=== PATIENT | female | born 1950 | race Caucasian/White ===

== ENCOUNTER 2020-04-30 09:13 | Outpatient (REF) | payer MEDICARE, SELFPAY ==
--- NOTE | 2020-04-30 09:18 | MM_ITS ---
EXAMINATION: MM SCREENING DIGITAL BREAST TOMOSYNTHESIS, BILATERAL CLINICAL INFORMATION: Screening. Asymptomatic. The lifetime risk of breast cancer based on the Tyrer-Cuzick Model is 4%. COMPARISON: Mammography: 02/16/2019, 02/13/2018, 08/09/2017, 11/06/2016 TECHNIQUE: Digital breast tomosynthesis is performed in both the craniocaudal and mediolateral oblique views along with computer-aided detection (CAD). Synthesized 2D images are generated from the tomosynthesis. FINDINGS: There are scattered areas of fibroglandular density (ACR BI-RADS breast composition Category b). Parenchymal pattern is similar to prior studies. Nodular asymmetry central outer left breast and mid outer right breast on the CC views are stable to decreased. There is no developing density or interval mass or architectural abnormality. No abnormal calcifications. The axilla and skin contours are unremarkable. MM/MM tomosynthesis screening BI IMPRESSION: No significant changes from prior exams. ASSESSMENT: BI-RADS 2: Benign RECOMMENDATION: Routine annual mammography screening. This patient's information was entered into a reminder system with a target due date for their next mammogram.
== END 2020-04-30 09:14 | disposition home or self-care (01) ==
LOC: HO.MAMMO 09:13
PROVIDERS: PCP Internal Medicine; Visit Provider Internal Medicine
DX: Z12.31 Encounter for screening mammogram for malignant neoplasm of breast (principal)
CPT/HCPCS: 77063; 77067

== ENCOUNTER 2021-05-12 09:33 | Outpatient (REF) | payer BC, SELFPAY ==
--- NOTE | ~2021-05-12 | MM_ITS ---
EXAMINATION: MM SCREENING DIGITAL BREAST TOMOSYNTHESIS, BILATERAL CLINICAL INFORMATION: Screening. Asymptomatic. The lifetime risk of breast cancer based on the Tyrer-Cuzick Model is 4.0%. COMPARISON: Mammography: 04/30/2020 and studies dating back to 09/14/2011 TECHNIQUE: Digital breast tomosynthesis is performed in both the craniocaudal and mediolateral oblique views along with computer-aided detection (CAD). Synthesized 2-D images are generated from the tomosynthesis. FINDINGS: There are scattered areas of fibroglandular density (ACR BI-RADS breast composition Category b). There is a stable parenchymal pattern within the left breast. There are some circumscribed densities seen bilaterally. Within the central slightly medial and inferior aspect of the right breast, there is a 5 x 4 x 5 mm circumscribed density which appears to have some calcifications within it for which spot magnification views are recommended. MM/MM tomosynthesis screening BI IMPRESSION: Right breast density with calcifications for further evaluation, as described. ASSESSMENT: BI-RADS 0: Incomplete - Need Additional Imaging Evaluation. RECOMMENDATION: 1. Additional views of the right breast. 2. Targeted ultrasound if warranted after review of the additional views. 3. Radiology department staff will contact the patient for additional imaging. This patient's information was entered into a reminder system with a target due date for their next mammogram.
--- NOTE | ~2021-05-12 | MM_ITS ---
EXAMINATION: BONE DENSITOMETRY CLINICAL INDICATION: Osteoporosis. COMPARISON: This is the patient's baseline examination. TECHNIQUE: Using a [employer] DXA System (software version: 13.1) manufactured by [employer], dual-energy x-ray absorptiometry was performed of the lumbar spine and left hip. The images are of good technical quality. Summary results are attached. FINDINGS: AP SPINE L1-L4: BMD 0.888 g/cm2, Z-score -0.7, T-score -2.4, osteopenia. LEFT FEMUR, NECK: BMD 0.773 g/cm2, Z-score -0.2, T-score -1.9, osteopenia. LEFT FEMUR, TOTAL: BMD 0.777 g/cm2, Z-score -0.4, T-score -1.8, osteopenia. IDENTIFIED RISK FACTORS: Rheumatoid arthritis, menopause. HISTORY OF FRACTURE: None listed. MEDICATIONS: Multivitamin. MM/XR DEXA axial skeleton IMPRESSION: 1. DIAGNOSIS: Osteopenia based on the lowest T-score value of -2.4 in the lumbar spine applying World Health Organization criteria. 2. 10-YEAR FRACTURE RISK PREDICTION, FRAX: Major osteoporotic fracture (clinical spine, forearm, hip or shoulder) 8.3%. Hip fracture 1.6%. 3. Treatment Recommendations: NOF guidelines recommend consideration for treatment in postmenopausal women and men age 50 and older presenting with the following: -A hip or vertebral (clinical or morphometric) fracture. -T-score less than or equal to -2.5 at the femoral neck or spine after appropriate evaluation to exclude secondary causes. -Low bone mass at the hip or spine and a 10-year fracture probability by FRAX of greater than or equal to 3% for hip fracture or greater than or equal to 20% for major osteoporotic fracture based on the [place] adapted WHO algorithm. 4. Other Recommendations: All treatment decisions require clinical judgment and consideration of individual patient factors, including patient preferences, comorbidities, previous drug use, risk factors not captured in the FRAX model (e.g. frailty, falls, vitamin D deficiency, increased bone turnover, interval significant decline in bone density) and possible under or overestimation of fracture risk by FRAX. Additional medical evaluation for secondary cause of low bone mineral density may be appropriate. FUTURE SCAN RECOMMENDATION: People with diagnosed cases of osteoporosis or at high risk for fracture should have regular bone mineral density tests. For patients eligible for Medicare, routine testing is allowed once every 2 years. The testing frequency can be increased to one year for patients who have rapidly progressing disease, those who are receiving or discontinuing medical therapy to restore bone mass, or have additional risk factors.
== END 2021-05-12 09:34 | disposition home or self-care (01) ==
LOC: HO.MAMMO 09:33
PROVIDERS: PCP Family Medicine; Visit Provider Family Medicine
DX: Z12.31 Encounter for screening mammogram for malignant neoplasm of breast (principal); Z13.820 Encounter for screening for osteoporosis; Z78.0 Asymptomatic menopausal state; M05.9 Rheumatoid arthritis with rheumatoid factor, unspecified; Z79.899 Other long term (current) drug therapy
CPT/HCPCS: 77063; 77067; 77080

== ENCOUNTER 2021-05-20 09:47 | Outpatient (REF) | payer BC, SELFPAY ==
--- NOTE | ~2021-05-20 | MM_ITS ---
EXAMINATION: MM DIAGNOSTIC DIGITAL MAMMOGRAPHY, RIGHT CLINICAL INFORMATION: Recall from screening for question of nodularity with calcification central right breast. COMPARISON: Mammography: 05/12/2021, 04/30/2020, 02/16/2019, 02/13/2018 TECHNIQUE: Digital mammography is performed in the following views: Magnification CC x2, magnification LM x2. FINDINGS: There are scattered areas of fibroglandular density (ACR BI-RADS breast composition Category b). The additional views show fibronodular parenchymal pattern similar to prior studies. No interval developing density or dominant nodularity or mass. There are a few fine calcifications central breast mid depth. No pleomorphic types or ductal distribution. Results are discussed with the patient at time of visit. MM/MM added views RT IMPRESSION: 1. Probable benign calcifications central breast mid depth. 2. Fibronodular parenchymal pattern similar to prior exams. No interval developing density or dominant nodularity. ASSESSMENT: BI-RADS 3: Probably Benign RECOMMENDATION: Diagnostic right mammography in 6 months. This patient's information was entered into a reminder system with a target due date for their next mammogram.
== END 2021-05-20 09:48 | disposition home or self-care (01) ==
LOC: HO.MAMMO 09:47
PROVIDERS: Visit Provider Family Medicine
DX: R92.8 Other abnormal and inconclusive findings on diagnostic imaging of breast (principal)
CPT/HCPCS: 77061; 77065

== ENCOUNTER 2021-11-25 12:10 | Outpatient (REF) | payer MEDICARE, SELFPAY ==
--- NOTE | ~2021-11-25 | MM_ITS ---
EXAMINATION: MM DIAGNOSTIC DIGITAL BREAST TOMOSYNTHESIS, RIGHT US DIAGNOSTIC ULTRASOUND BREAST (AXILLA), RIGHT CLINICAL INFORMATION: Short interval six-month follow-up probable benign tightly grouped calcifications central 8:00 right breast. TC score 4%. COMPARISON: Mammography: 05/20/2021, 05/12/2021 (BI-RADS 0), 04/30/2020, 02/16/2019, 11/05/2016 TECHNIQUE: Digital breast tomosynthesis is performed in both the craniocaudal and mediolateral oblique views along with computer-aided detection (CAD). Synthesized 2D images are generated from the tomosynthesis. Additional magnification right CC and magnification right ML views are obtained. Ultrasound right axilla is performed using grayscale imaging and color Doppler. Comparison imaging also performed left axilla. FINDINGS: There are scattered areas of fibroglandular density (ACR BI-RADS breast composition Category b). Parenchymal pattern is similar to prior studies. There is no developing density or architectural abnormality. The tightly grouped calcifications for follow-up central 8:00 position on magnification views appears stable. There are no increasing calcifications or pleomorphic types. There is prominent node high right axilla extending beyond the [id number]. This prompted ultrasound for additional evaluation. Ultrasound right axilla demonstrates several nodes with smooth contours and thickening of the cortex measuring up to 7 mm. Largest node is 2.2 cm in length. The nodes demonstrate normal central fatty hilus with normal hilar color flow pattern. One of the nodes have some subtle decreased echogenicity in the cortex. Comparison imaging left axilla also shows a large node measuring 3.6 cm in length with cortical thickening measuring up to 8.8 mm. There is fatty central hilus with normal hilar color flow pattern. Results are discussed with the patient at time of visit. Patient notes chronic history rheumatoid arthritis with increasing severity and recent year. The bilateral lymphadenopathy is believed to be reactive change related to her inflammatory arthropathy. The right breast calcifications are stable from prior diagnostic exam and will be reassessed again at time of annual bilateral mammography, due in 6 months. MM/MM tomosynthesis diagnostic RT IMPRESSION: -Benign-appearing tightly grouped right breast calcifications are stable from prior diagnostic exam. -Right breast parenchymal pattern similar to prior studies. No suspicious change. -Bilateral axillary adenopathy consistent with patient's rheumatoid condition. ASSESSMENT: BI-RADS 3: Probably Benign RECOMMENDATION: Magnification views right breast at time of annual bilateral mammography, due in 6 months. This patient's information was entered into a reminder system with a target due date for their next mammogram.
== END 2021-11-25 12:11 | disposition home or self-care (01) ==
LOC: HO.MAMMO 12:10
PROVIDERS: PCP Family Medicine; Visit Provider Family Medicine
DX: R92.8 Other abnormal and inconclusive findings on diagnostic imaging of breast (principal)
CPT/HCPCS: 76642; 77061; 77065

== ENCOUNTER 2022-05-18 09:43 | Outpatient (REF) | payer OTHER, SELFPAY ==
--- NOTE | ~2022-05-18 | MM_ITS ---
EXAMINATION: MM DIAGNOSTIC DIGITAL BREAST TOMOSYNTHESIS, RIGHT CLINICAL INFORMATION: Due for yearly. Also follow-up probable benign tightly grouped calcifications central 8:00 right breast. Rheumatoid arthritis. TC score 4%. COMPARISON: Mammography: 11/25/2021, 05/20/2021, 05/12/2021 (BI-RADS 0), 04/30/2020, 02/16/2019; ultrasound right breast 11/25/2021 TECHNIQUE: Digital breast tomosynthesis is performed in both the craniocaudal and mediolateral oblique views along with computer-aided detection (CAD). Synthesized 2D images are generated from the tomosynthesis. Additional magnification right CC and magnification right ML views are obtained. FINDINGS: There are scattered areas of fibroglandular density (ACR BI-RADS breast composition Category b). Parenchymal pattern is similar to prior studies. There is no developing density or interval mass or architectural abnormality. Small nodular asymmetry central outer left breast on CC view is similar to previous exams. There are some fine calcifications central 8:00 right breast stable compared with prior diagnostic exams. No increasing calcifications or pleomorphic types. Prominent bilateral axillary nodes again noted consistent with the rheumatoid arthritis. The skin contours are smooth. Results are provided to the patient at time of visit by the technologist. MM/MM tomosynthesis diagnostic BI IMPRESSION: -No mammographic evidence of malignancy. -Benign-appearing right breast calcifications similar to prior diagnostic exams. ASSESSMENT: BI-RADS 3: Probably Benign RECOMMENDATION: Diagnostic mammography at time of next annual exam, due in 12 months. This patient's information was entered into a reminder system with a target due date for their next mammogram.
== END 2022-05-18 09:44 | disposition home or self-care (01) ==
LOC: HO.MAMMO 09:43
PROVIDERS: Visit Provider Internal Medicine
DX: R92.8 Other abnormal and inconclusive findings on diagnostic imaging of breast (principal)
CPT/HCPCS: 77062; 77066

== ENCOUNTER 2023-06-15 11:16 | Outpatient (REF) | payer OTHER, SELFPAY ==
--- NOTE | ~2023-06-15 | MM_ITS ---
EXAMINATION: MM DIAGNOSTIC DIGITAL BREAST TOMOSYNTHESIS, BILATERAL CLINICAL INFORMATION: Six-month follow-up right breast calcifications 8:00 axis (final follow-up for two-year stability). Patient also due for bilateral screening. COMPARISON: Mammography: 05/18/2022, 11/25/2021, 05/20/2021, 05/12/2021 (BI-RADS 0), 04/30/2020, 02/16/2019; ultrasound right breast 11/25/2021 TECHNIQUE: Digital breast tomosynthesis is performed in both the craniocaudal and mediolateral oblique views along with computer-aided detection (CAD). Synthesized 2D images are generated from the tomosynthesis. In addition, 2-D spot magnification views of right breast were obtained in the CC and ML projections. FINDINGS: There are scattered areas of fibroglandular density (ACR BI-RADS breast composition Category b). Extremely fine and subtle calcifications in the 8:00 axis right breast associated with a vague parenchymal asymmetry are entirely unchanged when compared with 05/12/2021, and hence stable over a two-year period establishing benignity. No further follow-up recommended. There is a small linear group of benign calcifications within the right breast at the same depth, just lateral to the nipple line. These are unchanged over many years. Small nodular asymmetry central outer left breast on CC view is similar to previous exams, benign. Otherwise there are no suspicious masses, new suspicious grouped calcifications, or areas of architectural distortion in either breast. The parenchymal pattern is stable from prior exams. Prominent lymph nodes in the axillary regions are again noted, possibly related to underlying known rheumatoid arthritis. MM/MM tomosynthesis diagnostic BI IMPRESSION: There are no findings in either breast suspicious for malignancy. Right breast calcifications at the 8:00 axis are stable over 2 years, establishing benignity. No further follow-up required. Recommend the patient return to routine annual screening. ASSESSMENT: BI-RADS BI-RADS 2 - Benign Findings RECOMMENDATION: 1 year F/U Results were provided to the patient at time of visit by the technologist. This patient's information was entered into a reminder system with a target due date for their next mammogram.
== END 2023-06-15 11:17 | disposition home or self-care (01) ==
LOC: HO.MAMMO 11:16
PROVIDERS: PCP Family Medicine; Visit Provider Family Medicine
DX: R92.8 Other abnormal and inconclusive findings on diagnostic imaging of breast (principal)
CPT/HCPCS: 77062; 77066

== ENCOUNTER → 2023-06-15 11:30 | Outpatient (BNV) | payer OTHER, SELFPAY | PROVIDERS: PCP Family Medicine; Visit Provider Radiology Diagnostic Radiology | DX: R92.1 Mammographic calcification found on diagnostic imaging of breast (principal) | CPT/HCPCS: 77062; 77066; G0279 ==

== ENCOUNTER 2024-07-03 10:56 | Outpatient (REF) | payer OTHER, SELFPAY ==
--- OUTSIDE RECORDS SUMMARY | 2024-07-03 12:06 | XMS_ITS | Encounter Summary ---
Author Organization [facility] Address [address] [place] [address] Care Team Providers Care Client Program Manager Name Role Phone Neftali Hadley MD Primary Care Provider [phone] Encounter Details Date Type Department Care Team (Late st Contact Info) Description 06/15/2024 11:00 AM EST Office Visit Rheumatology - [place] [address] [place] [phone] Nikole Beth MD [address] [place] [address] Rheumatoid arthritis involving multiple sites with positive rheumatoid factor (CMS/HCC) (Primary Dx); On prednisone therapy; Generalized joint pain; Age related osteoporosis, unspecified pathological fracture presence Social History Tobacco Use Types Packs/Day Years Used Date Smoking Tobacco: Former Cigarettes Q uit: 06/06/1974 Smokeless Tobacco: Never Alcohol Use Standard Drinks/Week Comments Never 0 (1 standard drink = 0.6 oz pur e alcohol) Sex and Gender Information Value Date Recorded Sex Assigned at Not on file Gender Identity Not on file Sexual Orientation Not on file Job Start Date Occupation Industry Not on file Not on file Not on file documented as of this encounter Last Filed Vital Signs Vital Sign Reading Time Taken Comments Blood Pressure 130/70 06/15/2024 10:59 AM EST Pulse 63 06/15/2024 10:59 AM EST Temperature - - Respiratory Rate - - Oxygen Saturation 98% 06/15/2024 10:59 AM EST Inhaled Oxygen Concentration - - Weight 67.6 kg (149 lb) 06/15/2024 10:59 AM EST Height 162.6 cm (5' 4 ) 06/15/2024 10:59 AM EST Body Mass Index 25.58 06/15/2024 10:59 AM EST documented in this encounter Ordered Prescriptions Prescription Sig Dispensed Refills Start Date End Da te ibuprofen (ADVIL,MOTRIN) 600 mg tablet Take 1 tablet (600 mg total) by mouth 3 (three) times a day if needed for mild pain. 60 tablet 06/15/2024 08/14/2024 upadacitinib 15 mg tablet extended release 24 hrIndications:Rheumatoid arthritis involving multiple sites with positive rheumatoid factor (CMS/HCC) Take 15 mg by mouth 1 (one) time each day. 90 tablet 2 06/15/2024 06/26/2024 documented in this encounter Progress Notes * Nikole Beth MD - 06/15/2024 11:00 AM EST Images from the original note were not included. F/u visit . She is here today for f/u. She takes prednisone 5 mg off and on when she gets joint pain. She c/o pain in her left toes, right ankle. She states she is ready to start taking rinvoq as her joint pain is not better. She got shingles vaccination. She is on lipitor 20 mg daily. She was not vaccinated for Hep B as it wa snot covered by insurance. F/u visit 04/20/24 She is here today for f/u. She c/o generalized joint pain, mostly ankle pain, hand joint pain. Lastuse of prednisone was in Jan 2024. She states she has difficulty walking. She is ready to try rinvoq as her joint pain is not getting better. Has been on several anti rheumatic medications which havenot worked for her. She got 1 shingles vaccine and 2nd one is due in Jun 2024. She states HBV vaccination is not covered by her insurance and she did not get it yet. Follow up visit 01/19/24 She is doing well over all since she was last seen 2 weeks ago. Her last day of prednisone 5 mg was2 days ago. Reports polyarthralgia's are returning. Continues to have right ankle pain, worse with weight bearing and ambulation. She is excited about going on vacation to [place] with her family. She has yet to get Shingles and HBV vaccination series but will after her vacation. F/u visit 01/04/24 She is here today for f/u. After last visit she took prednisone for about a month which helped her .She is Hep B non immune. Will need hep B vaccination R ankle pain and swelling for about 1 week after her daughters dog jumped on her.She states she hadsome R ankle pain even before that but it was not that bad. She does not have any other joint pain Subjective (Initial visit 10/26/23) Orville Fisher is a 73 y.o. female who was referred by Neftali Hadley MD for evaluation of rheumatoid arthritis, osteoporosis She states she was diagnosed with RA about 10+ yrs ago. She was seeing Dr Saunders in [place], has not seen him in more than 6 months (mainly due to insurance issues). At present she is on ibuprofen but she stopped taking it as her blood pressure was elevated. She has been on several DMARDs for RA but they were stopped as they stopped working or she had side effects from it. She states she hasa lot of anxiety regarding medications for RA as they do not work. She does not remember all the medications that she has been on over the past 10 years. But when prompted she remembered some of the names of the medications that she has been on. At present, she has bilateral feet pain, shoulder pain, L wrist pain. She states prednisone works well for her and last use of prednisone was about 6 months ago (prescribed by her PCP). 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 She states she hassome difficulty walking due to pain in her feet. Has received R foot injections in the past. SHe also c/o low back pain long standing. Has not done PT. Ibuprofen helps with pain. Also has been diagnosed with osteoporosis recently. States she had a bone density test in March 2023 which showed osteoporosis and after that she started taking C + vit D C/o dry eyes, sees health and physical education teacher in [place], uses restasis eye drops Past meds for RA Plaquenil (stopped a yr ago) Humira (3-4 yrs ago : stopped working) Orencia Methotrexate. ? remicade infusion xeljanz (per chart review : Actemra : but not sure if she actually got it) ROS : H/o anxiety. Joint pain off and on in several joints Dry eyes Low back pain ROS is otherwise negative Social history : she is . She lives by herself but her children live closeby. She has 2 children 45, 44 yrs old. 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 MSK : Angular /ulnar deviation of both hands. [place] neck deformities of several fingers L wrist : swelling, tenderness, mild warmth + Some PIP joints have swelling but no tenderness. L 2nd, 3rd MCP joint swelling noted. R ankle : mild swelling +, mild warmth. Localized tenderness + No other joint swelling or tenderness Extremities : No edema All peripheral pulses well felt. Skin : No sclerodactyly Pics from 10/26/23 Laboratory results Lab Results Component Value Date WBC 9.1 11/14/2023 RBC 4.20 11/14/2023 HEMATOCRIT 38.0 11/14/2023 HEMOGLOBIN 12.6 11/14/2023 MCV 90.5 11/14/2023 MCH 30.0 11/14/2023 MCHC 33.2 11/14/2023 RDW 12.7 11/14/2023 PLTCOUNT 341 11/14/2023 MPV 11.6 11/14/2023 NEUTROPHILS 52 11/14/2023 LYMPHOCYTES 35.8 11/14/2023 MONOCYTES 8.5 11/14/2023 EOSINOPHILS 2.9 11/14/2023 BASOPHILS 0.8 11/14/2023 NEUTROPHABSO 4,732 11/14/2023 LYMPHOCYABSO 3,258 11/14/2023 MONOCYTABSOL 774 11/14/2023 EOSINOPHIABS 264 11/14/2023 BASOPHILSABS 73 11/14/2023 Laboratory results Lab Results Component Value Date BUN 18 11/14/2023 CREATININE 0.93 11/14/2023 NA 137 11/14/2023 K 4.4 11/14/2023 CL 103 11/14/2023 CO2 25 11/14/2023 GLUCFASTING 91 06/14/2016 GLUCOSE 98 11/14/2023 CALCIUM 9.0 11/14/2023 ALBUMIN 3.8 11/14/2023 ALBUMIN 3.5 (L) 11/14/2023 ALKPHOS 168 (H) 11/14/2023 AST 58 (H) 11/14/2023 ALT 62 (H) 11/14/2023 LABBILI 0.5 11/14/2023 Sed rate 60 Vit D 38 X-Ray Foot Complete Wt Bearing (3 view) - Bilateral Bilateral feet HISTORY: Pain. 3 views of each foot were obtained. Right foot: The bones are diffusely demineralized. There is no evidence of an acute fracture or dislocation. Moderate to severe joint space narrowing affects the MTP joints. Small erosive changes involving the heads of the third and fifth metatarsals. Mild interphalangeal joint space narrowing is noted. Left foot: The bones are diffusely demineralized. There is no evidence of a fracture or dislocation. Severe joint space narrowing affects the first, third and fifth MTP joints with areas of bone erosion. Mild interphalangeal joint space narrowing is also noted. IMPRESSION: Osteoarthritic changes with some areas of bone erosion especially involving the third and fifth MTPjoints on the right and the first, third and fifth MTP joints on the left. Report reviewed and signed by : Dr. Chace Lopez DO on 10/30/2023 8:08 PM. Workstation Name - [id number] X-Ray Lumbar Spine w/Flexion and Extension (6 view min) Lumbar spine HISTORY: Low back pain. AP, lateral neutral, flexion and extension views as well as oblique views of the lumbar spine were obtained. There is a mild levoscoliosis. There is no evidence of a fracture or subluxation. The disc spaces are preserved. Small anterior spurring is noted in the mid and lower lumbar spine. There is lower lumbar facet arthropathy. There is no spondylolisthesis. IMPRESSION: Mild spondylosis with small spurring and lower lumbar facet arthropathy. Report reviewed and signed by : Dr. Chace Lopez DO on 10/30/2023 8:02 PM. Workstation Name - [id number] X-Ray Hand Complete (3 view) - Bilateral Bilateral hands HISTORY: Arthritis. Left hand: There is decreased bone mineralization. There is no evidence of a fracture or dislocation. Severe joint space narrowing affects the radiocarpal joints. There is mild joint space narrowing of the MCP joints and moderate narrowing of the interphalangealjoints. The soft tissues are within normal limits. Right hand: There is decreased bone mineralization. There is no evidence of a fracture or dislocation. Mild joint space narrowing is noted in the radiocarpal joint. Severe joint space narrowing is noted in the MCP joints. There is mild joint space narrowing of the interphalangeal joints. The soft tissues are within normal limits. IMPRESSION: Osteopenia with no acute abnormality. Osteoarthritic changes especially involving the right MCP joints and left interphalangeal joints. Report reviewed and signed by : Dr. Chace Lopez DO on 10/30/2023 7:59 PM. Workstation Name - [id number] X-Ray Wrist Complete - Bilateral Bilateral wrists HISTORY: Pain and swelling. 3 views of each wrist were obtained. Left wrist: There is decreased bone mineralization. There is no evidence of a fracture or dislocation. Severe joint space narrowing affects the radiocarpal joints as well as the CMC joints. There is mild joint space narrowing of the MCP joints. Mild soft tissue swelling is noted posteriorly. Right wrist: There is decreased bone mineralization. There is no evidence of a fracture or dislocation. Mild joint space narrowing is noted in the radiocarpal joint. Severe joint space narrowing is noted in the MCP joints. The soft tissues are within normal limits. IMPRESSION: Osteopenia with no acute abnormality. Osteoarthritic changes especially involving the left wrist and right CMC joints. Report reviewed and signed by : Dr. Chace Lopez DO on 10/30/2023 7:55 PM. Workstation Name - [id number] X-Ray Ankle Weight Bearing - Bilateral Bilateral ankles HISTORY: Pain. 3 views of the ankle were obtained. There is decreased bone mineralization. There is no evidence of a fracture or subluxation. Mild degenerative changes are present with joint space narrowing in the ankles and midfoot. The soft tissues are within normal limits. IMPRESSION: Mild osteoarthritic changes. Report reviewed and signed by : Dr. Chace Lopez DO on 10/30/2023 7:50 PM. Workstation Name - [id number] Bone density Mar 2023 FINDINGS: LUMBAR SPINE Averaged L1 through L4: Bone density: 0.86 g/cm2 Z score: -1.0 T score: -2.7 LEFT HIP Left total hip: Bone density: -7.6 g/cm2 Z score: -0.5 T score: -2.0 CONCLUSION: 1. Lumbar spine: Osteoporosis. 2. Left hip: Osteopenia. A/P: Rheumatoid arthritis : Diagnosed about 10 years ago. Has been on several medications as above, has joint deformities, angular deviatoion. She states she responds well to prednisone and would like to be prescribed prednisone as she has had increased joint pain in the past several weeks. Prednisone taper in october 2023 which helped her generalized joint pain. She now takes prednisone 5 mg as needed when she gets worsening joint pain which does help her. We briefly discussed treatment with rinvoq PO, which she is willing to try it now as she got 2nd shot of shingles vaccination. It was approved for her Until October 2024 JOSE, CCP positive. hand, feet, ankle, chest Xrays as above. R ankle pain and swelling . Worse after her daughter's dog jumped on her. - Was administer edDepo-Medrol 40 ankle injection in Jan 2024, which helped her for a week and pain has recurred Hep B non immune/elevated transaminases : Not sure why her AST, ALT were elevated. She does not take any tylenol. Also she is hep B non immune. HepBs Ab <5. She stated she will get hep B vaccination at her PCP office but has some insurance coverage issues which she will sort out - Advised to get 2nd Zoster vaccine - Advised to get HBV vaccination series but not covered by insurance Lumbosacral pain : Likely due to DJD. lumbar spine Xrays show mild DJD, facet arthropathy. - Ibuprofen for pain as needed - Continue stretching exercises Osteoporosis : Bone density in Mar 2023 showed osteoporosis as above. She is taking Ca + vit D which she will continue. We discussed treatment with reclast infusion once a year for 3-5 yrs. She states she will consider it at next visit. She does not want to do it at present Recheck labs 2-3 weeks after she started rinvoq Will see her back in 3-4 months. Orders Placed This Encounter Procedures CBC and differential Comprehensive metabolic panel C-reactive protein Sedimentation rate CBC and differential Sedimentation rate C-reactive protein Comprehensive metabolic panel CBC auto differential documented in this encounter Plan of Treatment Upcoming Encounters Date Type Department Care Team (Late st Contact Info) Description 10/04/2024 10:30 AM EDT Office Visit Rheumatology - [place] [address] [place] [phone] Nikole Beth MD [address] [place] [address] Scheduled Orders Name Type Priority Associated Diagnoses Orde r Schedule CBC and differential Lab Routine Rheumatoid arthritis involving multiple sites with positive rheumatoid factor (CMS/HCC) 1 Occurrences starting 06/15/2024 until 06/15/2025 Comprehensive metabolic panel Lab Routine Rheumatoid arthritis involving multiple sites with positive rheumatoid factor (CMS/HCC) 1 Occurrences starting 06/15/2024 until 06/15/2025 C-reactive protein Lab Routine Rheumatoid arthritis involving multiple sites with positive rheumatoid factor (CMS/HCC) 1 Occurrences starting 06/15/2024 until 06/15/2025 Sedimentation rate Lab Routine Rheumatoid arthritis involving multiple sites with positive rheumatoid factor (CMS/HCC) 1 Occurrences starting 06/15/2024 until 06/15/2025 CBC and differential Lab Routine Rheumatoid arthritis involving multiple sites with positive rheumatoid factor (CMS/HCC) 1 Occurrences starting 06/15/2024 until 06/15/2025 Sedimentation rate Lab Routine Rheumatoid arthritis involving multiple sites with positive rheumatoid factor (CMS/HCC) 1 Occurrences starting 06/15/2024 until 06/15/2025 C-reactive protein Lab Routine Rheumatoid arthritis involving multiple sites with positive rheumatoid factor (CMS/HCC) 1 Occurrences starting 06/15/2024 until 06/15/2025 Comprehensive metabolic panel Lab Routine Rheumatoid arthritis involving multiple sites with positive rheumatoid factor (CMS/HCC) 1 Occurrences starting 06/15/2024 until 06/15/2025 CBC auto differential Lab Routine Rheumatoid arthritis involving multiple sites with positive rheumatoid factor (CMS/HCC) Ordered: 06/15/2024 documented as of this encounter Visit Diagnoses Diagnosis Rheumatoid arthritis involving multiple sites with positive rheumatoid factor (CMS/HCC)- Primary On prednisone therapy Generalized joint pain Age related osteoporosis, unspecified pathological fracture presence documented in this encounter Discontinued Medications Medication Sig Discontinue Reason Start Date End Da te upadacitinib 15 mg tablet extended release 24 hrIndications:Rheumatoid arthritis involving multiple sites with positive rheumatoid factor (CMS/HCC) Take 15 mg by mouth 1 (one) time each day. Reorder 04/20/2024 06/15/2024 sulfaSALAzine (AZULFIDINE) 500 mg EC tablet Take 1 tablet (500 mg total) by mouth 2 (two) times a day. 09/21/2021 06/15/2024 documented as of this encounter Care Teams Client Program Manager Relationship Specialty Start Date End Date Neftali Hadley MD [address] [place] [address] PCP - General Family Medicine 12/03/20 documented as of this encounter
--- OUTSIDE RECORDS SUMMARY | 2024-07-03 12:06 | XMS_ITS ---
Author Name [facility] Organization Unknown History of Medication Use Medication Directions Dispensed Refills Start Date End Date Stat pantoprazole (PROTONIX) 40 MG tablet TAKE 1 TABLET (40 MG TOTAL) BY MOUTH EVERY MORNING ON AN EMPTY STOMACH. 30-40 MIN PRIOR TO MEAL 08/31/2023 active tetracycline (ACHROMYCIN,SUMYCIN) 500 mg capsule Take 1 capsule (500 mg total) by mouth 4 (four) times a day. 03/29/2022 active ibuprofen (ADVIL,MOTRIN) 600 mg tablet Take 1 tablet (600 mg total) by mouth 3 (three) times a day if needed for mild pain. 06/15/2024 active Ventolin HFA 108 (90 Base) MCG/ACT inhaler Inhale 2 puffs into the lungs every 6 (six) hours as needed for wheezing. 10/12/2023 active propranoloL (INDERAL) 10 mg tablet Take 1 tablet (10 mg total) by mouth 2 (two) times a day. 04/07/2022 active atorvastatin (LIPITOR) tablet 20 mg TAKE 1 TABLET BY MOUTH EVERY DAY IN THE EVENING 06/17/2023 active omeprazole (PriLOSEC) [address] capsule Take 1 capsule (40 mg total) by mouth 2 (two) times a day. 03/22/2022 active cyanocobalamin (VITAMIN B12) injection 1,000 mcg 09/21/2022 activ e EPINEPHrine (EPIPEN) 0.3 mg/0.3 mL injection INJECT 0.3 ML (0.3 MG TOTAL) INTO THE MUSCLE ONCE FOR 1 DOSE. 10/05/2021 active multivitamin (MULTIPLE VITAMINS ORAL) Take by mouth. active lifitegrast (Xiidra) 5 % dropperette Administer 1 drop into both eyes 2 (two) times a day. 06/18/2023 active fluticasone (FloNASE) 50 mcg/spray nasal spray 1 spray into each nostril daily. 06/01/2023 active cyanocobalamin (VITAMIN B-12) 1,000 mcg/mL injection 1,000 mcg, Intramuscular, Weekly 09/21/2022 active metroNIDAZOLE (FLAGYL) 500 mg tablet Take 1 tablet (500 mg total) by mouth 3 (three) times a day. 03/29/2022 active azelastine (ASTELIN) 0.1 % nasal spray 02/10/2021 active Problems Problem Status Onset Date Problem Type Date of Resolution Source Viral sinusitis active [facility] Screening for colon cancer active 2021-12-01 ProblemAct [facility] DDD (degenerative disc disease), lumbar active 2021-02-23 ProblemAct [facility] Right ankle pain, unspecified chronicity active EncounterDiagnosisAct [facility] MG Elevated liver transaminase level active 2023-12-22 ProblemAct [facility] N Generalized joint pain active EncounterDiagnosisAct [facility] Vitamin D deficiency active 2021-11-16 ProblemAct [facility] Mild anemia active 2021-11-16 ProblemAct [facility] Anxiety active 2020-12-03 ProblemAct [facility] Essential hypertension active 2022-07-13 ProblemAct [facility] RA (rheumatoid arthritis) active 2022-07-13 ProblemAct [facility] Mixed hyperlipidemia active 2021-05-01 ProblemAct [facility] Rheumatoid arthritis involving multiple sites with positive rheumatoid factor (CMS/HCC) active EncounterDiagnosisAct [facility] APDM[facility] DDD (degenerative disc disease), lumbar active 2021-02-23 ProblemAct [facility] Occipital headache active 2022-07-13 ProblemAct [facility] B12 deficiency active 2022-09-15 ProblemAct [facility]_ [facility] Age related osteoporosis, unspecified pathological fracture presence active EncounterDiagnosisAct C [facility] Osteopenia active 2021-02-23 ProblemAct [facility]AN On prednisone therapy active EncounterDiagnosisAct [facility] Immunizations Vaccine Date Source Lot Number Status Zoster recombinant (Shingrix ) 19yo and older 02/20/2024 [facility] [id number] completed Influenza trivalent, 0.5mL ( Fluad) 65yo and older 04/09/2024 [facility] [id number] completed [employer] SARS-CoV-2 COVID-19, mRNA, LNP-S, preservative free 10/22/2020 [facility] completed Pneumococcal conjugate 13 va lent (Prevnar 13, PCV13) 2mo and older 04/12/2019 [facility] complet ed Pneumococcal polysaccharide 23 valent (Pneumovax 23) 2yo and older 04/04/2020 [facility] com pleted Tdap Tetanus diptheria acell ular pertussis (Boostrix; Adacel) 7yo and older 01/27/2017 [facility] completed Influenza Quadravalent, 0.5m l (Fluad) 65yo and older 04/03/2021 [facility] [id number] completed [employer] SARS-CoV-2 COVID-19, mRNA, LNP-S, preservative free 11/17/2020 [facility] completed
--- OUTSIDE RECORDS SUMMARY | 2024-07-03 12:06 | XMS_ITS | Encounter Summary ---
Author Organization [facility] Address [address] [place] [address] Care Team Providers Care Retail Merchandising Manager Name Role Phone Neftali Hadley MD Primary Care Provider [phone] Encounter Details Date Type Department Care Team (Late st Contact Info) Description 03/28/2024 10:09 AM EDT Hospital Encounter TH HISTORIC ENCOUNTERS EASTERN CONVERSION ONLY Neftali Hadley MD [address] [place] [phone] Social History Tobacco Use Types Packs/Day Years [...] Sign Reading Time Taken Comments Blood Pressure - - Pulse - - Temperature - - Respiratory Rate - - Oxygen Saturation - - Inhaled Oxygen Concentration - - Weight 67.1 kg (148 lb) 02/22/2024 11:10 AM EDT Height 162.6 cm (5' 4 ) 02/22/2024 11:10 AM EDT Body Mass Index 25.4 02/22/2024 11:10 AM EDT documented in this encounter Progress Notes * Neftali Hadley MD - 03/28/2024 10:20 AM EDT Patient ID: Orville Fisher is a 73 y.o. female. Subjective Chief Complaint Patient presents with ??? Injections HPI Here for B12 injection. Feeling well today. Review of Systems Constitutional: Negative for chills, fatigue and fever. HENT: Negative for sore throat. Respiratory: Negative for cough and shortness of breath. Gastrointestinal: Negative for diarrhea. Musculoskeletal: Negative for myalgias. Neurological: Negative for headaches. Psychiatric/Behavioral: Negative for confusion. Medical History Past Medical History: Diagnosis Date ??? Allergic ??? Allergic rhinitis ??? Anxiety ??? Arthritis ??? Chronic constipation ??? Disease of thyroid gland ??? Headache ??? Hypertension ??? RA (rheumatoid arthritis) (HCC) Past Surgical History: Procedure Laterality Date ??? BILATERAL OOPHORECTOMY ??? BREAST BIOPSY ??? BREAST SURGERY ??? SECTION ??? HYSTERECTOMY partial ??? MYOMECTOMY ??? WISDOM TOOTH EXTRACTION Allergies Allergen Reactions ??? Banana ??? Mustard ??? Nuts Hives and Swelling ??? Penicillins Other (See Comments) Unknown rx as child Other reaction(s): Other (See Comments) Unknown rx as child Current Outpatient Medications on File Prior to Visit Medication Sig Dispense Refill ??? atorvastatin (LIPITOR) tablet 20 mg TAKE 1 TABLET BY MOUTH EVERY DAY IN THE EVENING 90 tablet 1 ??? azelastine (ASTELIN) 0.1 % nasal spray ??? Enwzete-Qymxdutfpj-Qvdbnbd D (CITRACAL +D3 PO) Take by mouth. ??? famotidine (PEPCID) 20 MG tablet Take 1 tablet (20 mg total) by mouth every night at bedtime. 90 tablet 3 ??? ferrous gluconate (FERGON) 324 MG tablet Take 1 tablet (324 mg total) by mouth every morning with breakfast. ??? ibuprofen 800 MG tablet TAKE 1 TABLET BY MOUTH DAILY. 30 tablet 0 ??? Multiple Vitamin (MULTIVITAMIN ADULT PO) Take by mouth. ??? polyethylene glycol (MIRALAX) 17 g packet Take 17 g by mouth daily. 14 each 0 ??? propranolol (INDERAL) 10 MG tablet TAKE 1 TABLET BY MOUTH TWICE A DAY 180 tablet 1 ??? Ventolin HFA 108 (90 Base) MCG/ACT inhaler Inhale 2 puffs into the lungs every 6 (six) hours asneeded for wheezing. 8.5 g 2 ??? vitamin D3 (cholecalciferol) 25 MCG (1000 UT) tablet TAKE 1 TABLET BY MOUTH EVERY DAY 90 tablet1 ??? Xiidra 5 % SOLN INSTILL 1 DROP INTO EACH EYE TWICE A DAY Current Facility-Administered Medications on File Prior to Visit Medication Dose Route Frequency Provider Last Rate Last Admin ??? cyanocobalamin (VITAMIN B12) injection 1,000 mcg 1,000 mcg Intramuscular Weekly Neftali Hadley MD 1,000 mcg at 03/29/24 1551 Objective: Vitals: 03/28/24 1019 Temp: 97.4 ??F (36.3 ??C) Physical Exam Constitutional: General: She is not in acute distress. Appearance: She is well-developed. She is not ill-appearing. HENT: Head: Normocephalic and atraumatic. Pulmonary: Effort: Pulmonary effort is normal. Musculoskeletal: Cervical back: Neck supple. Neurological: Mental Status: She is alert and oriented to person, place, and time. Psychiatric: Speech: Speech normal. Behavior: Behavior normal. Thought Content: Thought content normal. Judgment: Judgment normal. Assessment and Plan: ICD-10-CM 1. B12 deficiency E53.8 B12 given today w/o complication PATIENT INSTRUCTIONS: There are no Patient Instructions on file for this visit. Return for Next scheduled follow up; B12 inj in 3 mo. Neftali Hadley MD documented in this encounter Plan of Treatment Upcoming Encounters Date Type Department Care Team (Late st Contact Info) Description 10/04/2024 10:30 AM EDT Office Visit Rheumatology - [place] [address] [place] [phone] Nikole Beth MD [address] [place] [address] documented as of this encounter Visit Diagnoses Not on filedocumented in this encounter Care Teams Retail Merchandising Manager Relationship Specialty Start Date End Date Neftali Hadley MD [address] [place] [address] PCP - General Family Medicine 12/03/20 documented as of this encounter
--- OUTSIDE RECORDS SUMMARY | 2024-07-03 12:07 | XMS_ITS | Clinical Summary ---
Author Organization [facility] Address [address] [place] [address] Care Team Providers Care Scarf And Anneal Operator Name Role Phone Unknown Primary Care Provider [phone] Allergies Active Allergy Reactions Criticality Noted Date Comments Penicillins Unknown/Patient and Family Unable to Define Medium 06/01/2023 Medications Medication Sig Dispensed Refills Start Date End Date Status propranolol (INDERAL) 20 MG tablet Take 20 mg by mouth 3 (three) times a day. Active fluticasone (FloNASE) 50 mcg/spray nasal sprayIndications:Viral sinusitis 1 spray into each nostril daily. 1 each 06/01/2023 Active Active Problems No known active problems Social History Tobacco Use Types Packs/Day Years Used Date Smoking Tobacco: Never Assessed Sex and Gender Information Value Date Recorded Sex Assigned at Not on file Gender Identity Not on file Sexual Orientation Not on file Last Filed Vital Signs Vital Sign Reading Time Taken Comments Blood Pressure 142/67 06/01/2023 10:17 AM EST Pulse 68 06/01/2023 10:17 AM EST Temperature 36.1 ??C (96.9 ??F) 06/01/2023 10:[address] Respiratory Rate - - Oxygen Saturation 97% 06/01/2023 10:17 AM EST Inhaled Oxygen Concentration - - Weight - - Height - - Body Mass Index - - Plan of Treatment Health Maintenance Due Date Last Done Comments Hepatitis C Virus Screening 1950 DTaP/Tdap/Td Vaccines (1 - Tdap) 1971 Mammogram 1992 Colonoscopy 1997 Pneumococcal Vaccines 50+ (1 of 1 - PCV) 2002 Zoster (Shingles) Vaccine (1 of 2) 2002 DXA Bone Density (Females,Ages 65 and older) 2017 Influenza Vaccine 01/05/2024 03/07/2023, 04/03/2021 COVID-19 Vaccine (3 - 2023-2 5 season) 2024 11/17/2020, 10/22/2020 RSV Vaccine 60 years and older and Patients (1 - 1-dose 75+ series) 2027 Hepatitis B Vaccines Aged Out No long er eligible based on patient's age to complete this topic Care Teams Scarf And Anneal Operator Relationship Specialty Start Date End Date Unknown Unknow Provider Address PCP - General 06/01/23
--- OUTSIDE RECORDS SUMMARY | 2024-07-03 12:07 | XMS_ITS | Clinical Summary ---
Author Organization [facility] Address [address] [place] [address] Care Team Providers Care Health Sciences Manager Name Role Phone Neftali Hadley MD Primary Care Provider [phone] Allergies Active Allergy Reactions Criticality Noted Date Comments Banana 12/03/2020 Mustard 12/03/2020 Nuts Hives,Swelling 12/03/2020 Penicillins Other (See Comments) 07/04/2014 Unknown rx as child Other reaction(s): Other (See Comments) Unknown rx as child Medications Medication Sig Dispensed Refills Start Date End Date Status azelastine (ASTELIN) 0.1 % nasal spray 0 02/10/2021 Active ferrous gluconate (FERGON) 324 MG tablet Take 1 tablet (324 mg total) by mouth every morning with breakfast. 0 Active vitamin D3 (cholecalciferol) 25 MCG (1000 UT) tabletIndications:Natasha min D deficiency TAKE 1 TABLET BY MOUTH EVERY DAY 90 tablet 1 05/09/2022 Active polyethylene glycol (MIRALAX) 17 g packetIndications:Slow transit constipation Take 17 g by mouth daily. 14 each 0 10/05/2022 Active Xiidra 5 % SOLN INSTILL 1 DROP INTO EACH EYE TWICE A DAY 0 06/18/2023 Active Ventolin HFA 108 (90 Base) MCG/ACT inhaler Inhale 2 puffs into the lungs every 6 (six) hours as needed for wheezing. 8.5 g 2 10/12/2023 Active ibuprofen 800 MG tabletIndications:Rheu matoid arthritis involving multiple sites, unspecified whether rheumatoid factor present (HCC) TAKE 1 TABLET BY MOUTH DAILY. 30 tablet 0 10/23/2023 Active Multiple Vitamin (MULTIVITAMIN ADULT PO) Take by mouth. 0 Active Wozqmuy-Jhpjosxacq-Gid cunningham D (CITRACAL +D3 PO) Take by mouth. 0 Active atorvastatin (LIPITOR) tablet 20 mgIndications:Hyperlip idemia, unspecified hyperlipidemia type TAKE 1 TABLET BY MOUTH EVERY DAY IN THE EVENING 90 tablet 1 12/19/2023 Active famotidine (PEPCID) 20 MG tablet Take 1 tablet (20 mg total) by mouth every night at bedtime. 90 tablet 3 02/22/2024 Active propranolol (INDERAL) 10 MG tabletIndications:Anxi ety TAKE 1 TABLET BY MOUTH TWICE A DAY 180 tablet 1 04/25/2024 Active Hospital, Clinic, or Other Facility Administered Medication Ordered Dose Route Frequency Start Date End Date Status cyanocobalamin (VITAMIN B12) injection 1,000 mcgIndications:B12 deficiency 1000 mcg IM Weekly 09/21/2022 Active Active Problems Problem Noted Date Diagnosed Date Elevated liver transaminase level 12/22/2023 B12 deficiency 09/15/2022 RA (rheumatoid arthritis) 07/13/2022 Essential hypertension 07/13/2022 Occipital headache 07/13/2022 Screening for colon cancer 12/01/2021 Vitamin D deficiency 11/16/2021 Mild anemia 11/16/2021 Mixed hyperlipidemia 05/01/2021 DDD (degenerative disc disease), lumbar 02/24/20 21 Osteopenia 02/23/2021 Anxiety 12/03/2020 Overview: Patient not ready to start a daily medication. She wants something not too strong for the moment she is unable to control with relaxation Encounters Date Type Department Care Team Description 04/09/2024 11:20 AM EST Office Visit [facility] Lucia Antoine [address] [place] [phone] Neftali Hadley MD Health maintenance examination (Primary Dx); Immunization due; Elevated liver transaminase level; B12 deficiency; Rheumatoid arthritis involving multiple sites, unspecified whether rheumatoid factor present (HCC); Mixed hyperlipidemia; Vitamin D deficiency; Age-related osteoporosis without current pathological fracture 04/09/2024 Travel from Last 3 Months Immunizations Name Administration Dates Next Due Covid-19 (Pfizer) Dilution Required 11/17/2020,0 10/22/2020 Influenza Quad (Fluad) 0.5 mL >65Yrs (AIIV4) 10/ Influenza Trivalent (Fluad) 0.5mL (65 yrs &>) Pneumococcal Conjugate PCV13 04/12/2019 Pneumococcal Polysaccharide PPSV23 04/04/2020 Shingrix Vaccine (Zoster Recombinant) 02/20/2024 Tdap 01/27/2017 Family History Medical History Relation Name Comments Diabetes Mother Hypertension Mother Mental illness Mother Stomach cancer Nephew Diabetes Sister 2 Hypertension Sister 2 Relation Name Status Comments Father Mother Nephew Alive Sister 2 Alive Social History Tobacco Use Types Packs/Day Years Used Date Smoking Tobacco: Former Cigarettes Q uit: 1975 Smokeless Tobacco: Never Tobacco Cessation:Counseling Given: Not Answered Comments:socially Alcohol Use Standard Drinks/Week Comments Never 0 (1 standard drink = 0.6 oz pur e alcohol) Sex and Gender Information Value Date Recorded Sex Assigned at Not on file Gender Identity Not on file Sexual Orientation Not on file Job Start Date Occupation Industry Not on file Not on file Not on file Last Filed Vital Signs Vital Sign Reading Time Taken Comments Blood Pressure 120/80 04/09/2024 11:18 AM EST Pulse 61 04/09/2024 11:18 AM EST Temperature 36.7 ??C (98.1 ??F) 04/09/2024 11:[address] Respiratory Rate 18 04/09/2024 11:18 AM EST Oxygen Saturation 95% 04/09/2024 11:18 AM EST Inhaled Oxygen Concentration - - Weight 68.5 kg (151 lb) 04/09/2024 11:18 AM EST Height 162.6 cm (5' 4 ) 04/09/2024 11:18 AM EST Body Mass Index 25.92 04/09/2024 11:18 AM EST Plan of Treatment Health Maintenance Due Date Last Done Comments Fall Risk Assessment 04/07/2023 04/07/2022, 04/07/20 COVID-19 Vaccine ( season) 2024 11/17/2020, 10/22/2020 Shingrix-Zoster Vaccine (2 of 2) 04/16/2024 02/20/2024 Osteoporosis Screening (DEXA Scan) 03/30/2025 03/30/2023, 05/12/2021 Depression Screening 04/09/2025 04/09/2024, 04/07/2022, 04/07/2022, Additional history exists Preventative Health Evaluation 04/09/2025 04/09/2024, 04/09/2024, 10/05/2022, Additional history exists Breast Cancer Screening (Mammogram) 06/15/2025 06/15/2023, 05/18/2022, 11/25/2021, Additional history exists DTap / Tdap / Td (2 - Td or Tdap) 01/27/2027 01/27/2017 RSV Adult > 60+ Yrs or (1 - 1-dose 75+ series) 2027 Colon Cancer Screening (Colonoscopy) 03/22/2032 03/22/2022 Pneumococcal Vaccine Completed 04/04/2020, 04/12/20 19 Hepatitis C Screening Completed 11/14/2023, 021 Influenza Vaccine Completed 04/09/2024, 04/03/2021 Hepatitis B Vaccines Aged Out No long er eligible based on patient's age to complete this topic RSV Ped < 20 months Aged Out No longe r eligible based on patient's age to complete this topic Procedures Procedure Name Priority Date/Time Associated Diagnosis Comments NON HDL CHOLESTEROL Routine 04/10/2024 1 0:28 AM EST CHOL/HDLC RATIO Routine 04/10/2024 10:28 AM EST LDL-CHOLESTEROL Routine 04/10/2024 10:28 AM EST TRIGLYCERIDES (PREP L2) Routine 04/10/2024 10:28 AM EST HDL Routine 04/10/2024 10:28 AM EST CHOLESTEROL (PREP L2) Routine 04/10/2024 10:28 AM EST VITAMIN B12 Routine 04/10/2024 10:28 AM EST B12 deficiency 25-HYDROXY VITAMIN D Routine 04/10/2024 10:28 AM EST Vitamin D deficiency Age-related osteoporosis without current pathological fracture TSH, ULTRASENSITIVE Routine 04/10/2024 1 0:28 AM EST Health maintenance examination COMPREHENSIVE METABOLIC PANEL RANDOM/FASTING Routine 04/10/2024 10:28 AM EST Health maintenance examination Elevated liver transaminase level CBC W/AUTO DIFFERENTIAL Routine 04/10/2024 10:28 AM EST Health maintenance examination Rheumatoid arthritis involving multiple sites, unspecified whether rheumatoid factor present (HCC) ERYTHROCYTE SEDIMENTATION RATE Routine 04/10/2024 10:26 AM EST Rheumatoid arthritis involving multiple sites, unspecified whether rheumatoid factor present (HCC) Abnormal transaminases C-REACTIVE PROTEIN Routine 04/10/2024 10 :26 AM EST Rheumatoid arthritis involving multiple sites, unspecified whether rheumatoid factor present (HCC) Abnormal transaminases IMMUNOFIXATION, SERUM Routine 04/10/2024 10:26 AM EST Rheumatoid arthritis involving multiple sites, unspecified whether rheumatoid factor present (HCC) Abnormal transaminases GAMMA-GLUTAMYLTRANSFER ASE (GGT) Routine 04/10/2024 10:26 AM EST Rheumatoid arthritis involving multiple sites, unspecified whether rheumatoid factor present (HCC) Abnormal transaminases COMPREHENSIVE METABOLIC PANEL RANDOM/FASTING Routine 04/10/2024 10:26 AM EST Rheumatoid arthritis involving multiple sites, unspecified whether rheumatoid factor present (HCC) Abnormal transaminases POCT URINALYSIS (29058) Routine 04/09/2024 Health maintenance examination from Last 3 Months Results * (ABNORMAL) Comprehensive Metabolic panel Random/Fasting (04/10/2024 10:28 AM EST) Only the most recent of2 resultswithin the time period is included. Pathologist [facility] Glucose 83 65 - 99 mg/dL [facility] Comment: ? Fasting reference interval Urea Nitrogen (BUN) 10 7 - 25 mg/dL [facility] Creatinine, Serum 0.83 0.60 - 1.00 mg/dL [facility] EGFR 75 > OR = 60 mL/min/1. 73m2 [facility] BUN/Creatinine Ratio SEE NOTE: 6 - 22 (calc) [facility] Comment: ?? Not Reported: BUN and Creatinine are within ?? reference range. ? Sodium 140 135 - 146 mmol/L [facility] POTASSIUM 4.7 3.5 - 5.3 mmol/L [facility] Chloride 104 98 - 110 mmol/L [facility] Carbon Dioxide 27 20 - 32 mmol/L [facility] Calcium 9.0 8.6 - 10.4 mg/dL [facility] PROTEIN, TOTAL 7.1 6.1 - 8.1 g/dL [facility] ALBUMIN 3.5(L) 3.6 - 5.1 g/dL [facility] GLOBULIN 3.6 1.9 - 3.7 g/dL (calc) [facility] Albumin/Globulin Ratio 1.0 1.0 - 2.5 (calc) [facility] Bilirubin, Total 0.5 0.2 - 1.2 mg/dL [facility] ALKALINE PHOSPHATASE 134 37 - 153 U/L [facility] AST 22 10 - 35 U/L [facility] ALT 14 6 - 29 U/L [facility] 04/10/2024 10:2 8 AM EST 04/10/2024 10:28 AM EST Narrative [facility] - 04/11/2024 2:48 AM EST FASTING:YES FASTING: YES Resulting Agency Comment Performing Organization Information: ?Site ID: [id number] ?Name: [employer] ?Address: [address] [place] [id number] ?Director: Chucho Lorenzo M.D. Neftali Hadley MD LAB BLOOD ORDERABLES [facility] * Non HDL Cholesterol (04/10/2024 10:28 AM EST) Non HDL Cholesterol 90 <130 mg/dL (calc) [facility] Comment: For patients with diabetes plus 1 major ASCVD risk factor, treating to a non-HDL-C goal of <100 mg/dL (LDL-C of <70 mg/dL) is considered a therapeutic option. 04/10/2024 10:2 8 AM EST 04/10/2024 10:28 AM EST Narrative [facility] - 04/11/2024 2:48 AM EST FASTING:YES FASTING: YES Resulting Agency Comment Performing Organization Information: ?Site ID: [id number] ?Name: [employer] ?Address: [address] [place] [id number] ?Director: Chucho Lorenzo M.D. Neftali Hadley MD LAB BLOOD ORDERABLES Performing Organization Address [facility] Co de Phone Number [facility] * LDL-CHOLESTEROL (04/10/2024 10:28 AM EST) LDL-Cholesterol 69 mg/dL (calc) [facility] Comment: Reference range: <100 Desirable range <100 mg/dL for primary prevention; ?? <70 mg/dL for patients with CHD or diabetic patients with > or = 2 CHD risk factors. LDL-C is now calculated using the Rainer calculation, which is a validated novel method providing better accuracy than the Friedewald equation in the estimation of LDL-C. Dontrell SS et al. ALIX. 2013;310(99): 7640-0285 (http://education.Immigreat Now/faq/STM378) 04/10/2024 10:2 8 AM EST 04/10/2024 10:28 AM EST Narrative [facility] - 04/11/2024 2:48 AM EST FASTING:YES FASTING: YES Resulting Agency Comment Performing Organization Information: ?Site ID: [id number] ?Name: [employer] ?Address: [address] [place] [phone] ?Director: Chucho Lorenzo M.D. Neftali Hadley MD LAB BLOOD ORDERABLES Performing Organization Address City/[facility]/ZIP Co de Phone Number [facility] * CHOL/HDLC RATIO (04/10/2024 10:28 AM EST) Chol/HDLC Ratio 3.3 <5.0 (calc) [facility] 04/10/2024 10:2 8 AM EST 04/10/2024 10:28 AM EST Narrative [facility] - 04/11/2024 2:48 AM EST FASTING:YES FASTING: YES Resulting Agency Comment Performing Organization Information: ?Site ID: [id number] ?Name: [employer] ?Address: [address] [place] [phone] ?Director: Chucho Lorenzo M.D. Neftali Hadley MD LAB BLOOD ORDERABLES [facility] * (ABNORMAL) CBC W/Auto Differential (04/10/2024 10:28 AM EST) Pathologist [facility] White Blood Cell Count 7.6 3.8 - 10.8 Thousand/ uL [facility] Red Blood Cell Count 4.06 3.80 - 5.10 Million/u L [facility] Hemoglobin 11.8 11.7 - 15.5 g/dL [facility] Hematocrit 36.6 35.0 - 45.0 % [facility] MCV 90.1 80.0 - 100.0 fL [facility] MCH 29.1 27.0 - 33.0 pg [facility] MCHC 32.2 32.0 - 36.0 g/dL [facility] Comment: For adults, a slight decrease in the calculated MCHC value (in the range of 30 to 32 g/dL) is most likely not clinically significant; however, it should be interpreted with caution in correlation with other red cell parameters and the patient's clinical condition. RDW 11.9 11.0 - 15.0 % [facility] Platelet Count 402(H) 140 - 400 Thousand/ uL [facility] MPV 11.5 7.5 - 12.5 fL [facility] Absolute Neutrophils 3,732 1,500 - 7,800 cells/uL [facility] Absolute Band Neutrophils CANCELED 0 - 750 cells/uL [facility] Comment:Result canceled by t he ancillary. Absolute Metamyelocytes CANCELED 0 cells/uL [facility] Comment:Result canceled by t he ancillary. Absolute Myeloctytes CANCELED 0 cells/uL [facility] Comment:Result canceled by t he ancillary. Absolute Promyelocytes CANCELED 0 cells/uL [facility] Comment:Result canceled by t he ancillary. Absolute Lymphocytes 2,804 850 - 3,900 cells/uL [facility] Absolute Monocytes 661 200 - 950 cells/uL [facility] Absolute Eosinophils 312 15 - 500 cells/uL [facility] Absolute Basophils 91 0 - 200 cells/uL [facility] Absolute Blasts CANCELED 0 cells/uL [facility] Comment:Result canceled by t he ancillary. Absolute Nucleated RBC CANCELED 0 cells/uL [facility] Comment:Result canceled by t he ancillary. Neutrophils 49.1 % [facility] Band Neutrophils CANCELED % [facility] Comment:Result canceled by t he ancillary. Metamyelocytes CANCELED % [facility] Comment:Result canceled by t he ancillary. Myelocytes CANCELED % [facility] Comment:Result canceled by t he ancillary. Promyelocytes CANCELED % [facility] Comment:Result canceled by t he ancillary. Lymphocytes 36.9 % [facility] Reactive Lymphocytes CANCELED 0 - 10 % [facility] Comment:Result canceled by t he ancillary. Monocytes 8.7 % [facility] Eosinophils 4.1 % [facility] Basophils 1.2 % [facility] Blasts CANCELED % [facility] Comment:Result canceled by t he ancillary. Nucleated RBC CANCELED 0 /100 WBC [facility] Comment:Result canceled by t he ancillary. Comment(s) CANCELED [facility] Comment:Result canceled by t he ancillary. 04/10/2024 10:2 8 AM EST 04/10/2024 10:28 AM EST Narrative [facility] - 04/11/2024 2:48 AM EST FASTING:YES FASTING: YES Resulting Agency Comment Performing Organization Information: ?Site ID: [id number] ?Name: [employer] ?Address: [address] [place] [phone] ?Director: Chucho Lorenzo M.D. Neftali Hadley MD LAB BLOOD ORDERABLES [facility] * TSH, Ultrasensitive (04/10/2024 10:28 AM EST) TSH 2.39 0.40 - 4.50 mIU/L [facility] 04/10/2024 10:2 8 AM EST 04/10/2024 10:28 AM EST Narrative [facility] - 04/11/2024 2:48 AM EST FASTING:YES FASTING: YES Resulting Agency Comment Performing Organization Information: ?Site ID: [id number] ?Name: [employer] ?Address: [address] [place] [address] ?Director: Chucho Lorenzo M.D. Neftali Hadley MD LAB BLOOD ORDERABLES Performing Organization Address [facility] de Phone Number [facility] * Vitamin B12 (04/10/2024 10:28 AM EST) VITAMIN B12 413 200 - 1,100 pg/mL [facility] 04/10/2024 10:2 8 AM EST 04/10/2024 10:28 AM EST Narrative [facility] - 04/11/2024 2:48 AM EST FASTING:YES FASTING: YES Resulting Agency Comment Performing Organization Information: ?Site ID: [id number] ?Name: [employer] ?Address: [address] [place] [address] ?Director: Chucho Lorenzo M.D. Neftali Hadlye MD LAB BLOOD ORDERABLES Performing Organization Address [facility] de Phone Number [facility] * Triglycerides (04/10/2024 10:28 AM EST) Triglycerides 126 <150 mg/dL [facility] 04/10/2024 10:2 8 AM EST 04/10/2024 10:28 AM EST Narrative [facility] - 04/11/2024 2:48 AM EST FASTING:YES FASTING: YES Resulting Agency Comment Performing Organization Information: ?Site ID: [id number] ?Name: [employer] ?Address: [address] [place] [address] ?Director: Chucho Lorenzo M.D. Neftali Hadley MD LAB BLOOD ORDERABLES Performing Organization Address [facility] de Phone Number [facility] * (ABNORMAL) HDL (04/10/2024 10:28 AM EST) HDL Cholesterol 39(L) > OR = 50 mg/dL [facility] 04/10/2024 10:2 8 AM EST 04/10/2024 10:28 AM EST Narrative [facility] - 04/11/2024 2:48 AM EST FASTING:YES FASTING: YES Resulting Agency Comment Performing Organization Information: ?Site ID: [id number] ?Name: [employer] ?Address: [address] [place] [address] ?Director: Chucho Lorenzo M.D. Neftali Hadley MD LAB BLOOD ORDERABLES Performing Organization Address [facility] de Phone Number [facility] * Cholesterol (Prep L2) (04/10/2024 10:28 AM EST) Cholesterol, Total 129 <200 mg/dL [facility] 04/10/2024 10:2 8 AM EST 04/10/2024 10:28 AM EST Narrative [facility] - 04/11/2024 2:48 AM EST FASTING:YES FASTING: YES Resulting Agency Comment Performing Organization Information: ?Site ID: [id number] ?Name: [employer] ?Address: [address] [place] [address] ?Director: Chucho Lorenzo M.D. Neftali Hadley MD LAB BLOOD ORDERABLES Performing Organization Address [facility] de Phone Number [facility] * 25-Hydroxy Vitamin D (04/10/2024 10:28 AM EST) Vitamin D,25-OH, Total 36 30 - 100 ng/mL [facility] Comment: Vitamin D Status ? 25-OH Vitamin D: Deficiency: ?<20 ng/mL Insufficiency: ? 20 - 29 ng/mL Optimal: ? > or = 30 ng/mL For 25-OH Vitamin D testing on patients on D2-supplementation and patients for whom quantitation of D2 and D3 fractions is required, the QuestAssureD(TM) 25-OH VIT D, (D2,D3), LC/MS/MS is recommended: order code 57773 (patients >2yrs). See Note 1 Note 1 For additional information, please refer to http://education.Immigreat Now/faq/USX334 (This link is being provided for informational/ educational purposes only.) 04/10/2024 10:2 8 AM EST 04/10/2024 10:28 AM EST Narrative [facility] - 04/11/2024 2:48 AM EST FASTING:YES FASTING: YES Resulting Agency Comment Performing Organization Information: ?Site ID: [id number] ?Name: [employer] ?Address: [address] [place] [address] ?Director: Chucho Lorenzo M.D. Neftali Hadley MD LAB BLOOD ORDERABLES Performing Organization Address [facility] de Phone Number [facility] * (ABNORMAL) Erythrocyte Sedimentation Rate (04/10/2024 10:26 AM EST) SED RATE BY MODIFIED WESTERGREN 74(H) < OR = 30 mm/h [facility] 04/10/2024 10:2 6 AM EST 04/10/2024 10:27 AM EST Narrative [facility] - 04/11/2024 10:05 PM EST FASTING:YES FASTING: YES Resulting Agency Comment Performing Organization Information: ?Site ID: [id number] ?Name: [employer] ?Address: [address] [place] [phone] ?Director: Chucho Lorenzo M.D. Nikole Beth MD LAB BLOOD ORDERABLES Performing Organization Address [facility] de Phone Number [facility] * Gamma-Glutamyltransferase (GGT) (04/10/2024 10:26 AM EST) GGT 56 3 - 65 U/L [facility] 04/10/2024 10:2 6 AM EST 04/10/2024 10:27 AM EST Narrative [facility] - 04/11/2024 10:05 PM EST FASTING:YES FASTING: YES Resulting Agency Comment Performing Organization Information: ?Site ID: [id number] ?Name: [employer] ?Address: [address] [place] [address] ?Director: Chucho Lorenzo M.D. Nikole Beth MD LAB BLOOD ORDERABLES Performing Organization Address [facility] de Phone Number [facility] * Immunofixation, Serum (04/10/2024 10:26 AM EST) INTERPRETATION [facility] Comment:No monoclonal protei ns detected. 04/10/2024 10:2 6 AM EST 04/10/2024 10:27 AM EST Narrative [facility] - 04/11/2024 10:05 PM EST FASTING:YES FASTING: YES Resulting Agency Comment Performing Organization Information: ?Site ID: [id number] ?Name: [employer] ?Address: [address] [place] [address] ?Director: Chucho Lorenzo M.D. Nikole Beth MD LAB BLOOD ORDERABLES Performing Organization Address [facility] de Phone Number [facility] * (ABNORMAL) C-Reactive Protein (04/10/2024 10:26 AM EST) C-REACTIVE PROTEIN 10.5(H) <8.0 mg/L [facility] 04/10/2024 10:2 6 AM EST 04/10/2024 10:27 AM EST Narrative [facility] - 04/11/2024 10:05 PM EST FASTING:YES FASTING: YES Resulting Agency Comment Performing Organization Information: ?Site ID: [id number] ?Name: [employer] ?Address: [address] [place] [phone] ?Director: Chucho Lorenzo M.D. Nikole Beth MD LAB BLOOD ORDERABLES [facility] * (ABNORMAL) POCT Urinalysis (04/09/2024) POCT Color, Urine POCT Clarity, Urine POCT Glucose, Urine Negative Negative POCT Urine Bilirubin Negative POCT Ketones, Urine Negative Negative POCT Specfic Cobden, Urine 1.020 1.005 - 1.030 POCT Blood, Urine Trace Lysed(A) Negative POCT Urine pH 6.0 4.5 - 8.0 POCT Protein, Urine Negative Negative, Trace, 15 mg/dL, 30 mg/dL, 100 mg/dL, >=300 mg/dL, >=2000 mg/dL POCT Urine Urobilinogen Normal POCT Nitrite, Urine Negative Negative, Unable to obtain valid result POCT Leukocytes, Urine Negative Negative QC IN LAST 24H? MULTISTIX 8 SG LOT# MULTISTIX 8 SG EXP DATE 04/09/2024 Neftali Hadley MD POINT OF CARE TEST O RDERABLES from Last 3 Months Advance Directives For more information, please contact: [phone] Documents on File Type Date Recorded Patient Fullerette Expl anation Advance Directive and Living Will 12/11/2015 7:43 AM Care Teams Health Sciences Manager Relationship Specialty Start Date End Date Neftali Hadley MD [address] [place] [phone] PCP - General Family Medicine 12/03/20 [facility] Optometry 12/21/22
--- OUTSIDE RECORDS SUMMARY | 2024-07-03 12:07 | XMS_ITS | Clinical Summary ---
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 Name Role Phone Neftali Ellsworth MD Primary Care Provider Allergies Active Allergy Reactions Criticality Noted Date Comments Banana 12/03/2020 Mustard 12/03/2020 Nut - Unspecified Hives,Swelling 12/03/2020 Penicillins 07/04/2014 Other reaction(s): Other (See Comments) Unknown rx as child Medications Medication Sig Dispensed Refills Start Date End Date Status albuterol HFA (PROAIR HFA ; PROVENTIL HFA ; VENTOLIN HFA) 90 mcg/actuation inhaler 1 PUFF NEEDED EVERY 4 HRS NEEDED INHALATION 25 Strength: 108 (90 Base) MCG/ACT 04/07/2022 Active azelastine (ASTELIN) 137 mcg (0.1 %) nasal spray 02/10/2021 Active EPINEPHrine (EPIPEN) 0.3 mg/0.3 mL injection INJECT 0.3 ML (0.3 MG TOTAL) INTO THE MUSCLE ONCE FOR 1 DOSE. 10/05/2021 Active ferrous gluconate (FERGON) 324 mg (38 mg iron) tablet Take 324 mg by mouth every morning with breakfast. Active hydrOXYchloroQUI NE (PLAQUENIL) 200 mg tablet Take 200 mg by mouth daily. 03/30/2021 Active ibuprofen (ADVIL,MOTRIN) 800 mg tablet 800 mg daily. 11/30/2020 Active metroNIDAZOLE (FLAGYL) 500 mg tablet Take 1 tablet (500 mg total) by mouth 3 (three) times a day. 03/29/2022 Active omeprazole (PriLOSEC) [address] capsule Take 1 capsule (40 mg total) by mouth daily. 30- 40 min prior to meal 03/22/2022 Active omeprazole (PriLOSEC) [address] capsule Take 1 capsule (40 mg total) by mouth 2 (two) times a day. 03/29/2022 Active predniSONE (DELTASONE) 5 mg tablet 12/04/2021 Active propranoloL (INDERAL) 10 mg tablet Take 1 tablet (10 mg total) by mouth 2 (two) times a day. 04/07/2022 Active tetracycline (ACHROMYCIN,SUMY HERNAN) 500 mg capsule 03/29/2022 Active cholecalciferol (VITAMIN D-3) 25 mcg (1,000 unit) tablet TAKE 1 TABLET BY MOUTH EVERY DAY 05/09/2022 Active calcium phosphate trib/vit D3 (CITRACAL + D3, CALCIUM PHOS, ORAL) Take by mouth. Active multivitamin (MULTIPLE VITAMINS ORAL) Take by mouth. Active atorvastatin (LIPITOR) 20 mg tablet Take 1 tablet (20 mg total) by mouth 1 (one) time each day in the evening. 12/19/2023 Active cyanocobalamin (VITAMIN B-12) 1,000 mcg/mL injection Inject 1 mL (1,000 mcg total) into the shoulder, thigh, or buttocks every 3 (three) months. 1,000 mcg, Intramuscular, Weekly 09/21/2022 Active lifitegrast (Xiidra) 5 % dropperette Administer 1 drop into both eyes 2 (two) times a day. 06/18/2023 Active pantoprazole (PROTONIX) 40 mg EC tablet TAKE 1 TABLET (40 MG TOTAL) BY MOUTH EVERY MORNING ON AN EMPTY STOMACH. 30-40 MIN PRIOR TO MEAL 11/28/2023 Active polyethylene glycol (MIRALAX) 17 gram packet Take 17 g by mouth daily. 10/05/2022 Active albuterol HFA (Ventolin HFA) 90 mcg/actuation inhaler Inhale 2 puffs by mouth every 6 hours as needed. 10/12/2023 Active ibuprofen (ADVIL,MOTRIN) 600 mg tablet Take 1 tablet (600 mg total) by mouth 3 (three) times a day if needed for mild pain. 60 tablet 06/15/2024 08/15/19 25 Active upadacitinib 15 mg tablet extended release 24 hrIndications:Rh eumatoid arthritis involving multiple sites with positive rheumatoid factor (CMS/HCC) Take 15 mg by mouth 1 (one) time each day. 90 tablet 2 06/26/2024 Active sulfaSALAzine (AZULFIDINE) 500 mg EC tablet Take 1 tablet (500 mg total) by mouth 2 (two) times a day. 09/21/2021 06/15/19 25 Discontinued predniSONE (DELTASONE) 5 mg tablet Take 1 tablet (5 mg total) by mouth 1 (one) time each day. 30 each 3 04/20/2024 06/19/19 25 upadacitinib 15 mg tablet extended release 24 hrIndications:Rh eumatoid arthritis involving multiple sites with positive rheumatoid factor (CMS/HCC) Take 15 mg by mouth 1 (one) time each day. 90 tablet 2 04/20/2024 06/15/19 25 Discontinued(Reo rder) upadacitinib 15 mg tablet extended release 24 hrIndications:Rh eumatoid arthritis involving multiple sites with positive rheumatoid factor (CMS/HCC) Take 15 mg by mouth 1 (one) time each day. 90 tablet 2 06/15/2024 06/26/19 25 Discontinued(Reo rder) Active Problems Problem Noted Date Diagnosed Date Elevated liver transaminase level 12/22/2023 B12 deficiency 09/15/2022 Essential hypertension 07/13/2022 Occipital headache 07/13/2022 RA (rheumatoid arthritis) 07/13/2022 Mild anemia 11/16/2021 Vitamin D deficiency 11/16/2021 Mixed hyperlipidemia 05/01/2021 DDD (degenerative disc disease), lumbar 02/24/20 Osteopenia 02/23/2021 Anxiety 12/03/2020 Overview (07/13/2022): Patient not ready to start a daily medication. She wants something not too strong for the moment she is unable to control with relaxation Encounters Date Type Department Care Team Description 06/15/2024 11:00 AM EST [facility] [place] [address] [facility] [address] [place] [phone] Nikole Beth MD Rheumatoid arthritis involving multiple sites with positive rheumatoid factor (CMS/HCC) (Primary Dx); On prednisone therapy; Generalized joint pain; Age related osteoporosis, unspecified pathological fracture presence 04/20/2024 11:30 AM EST Office Visit Rheumatology - [place] [address] [place] [address] Nikole Beth MD Rheumatoid arthritis involving multiple sites with positive rheumatoid factor ([facility]) (Primary Dx); Hypercholesterolemia; Polyarthralgia; Age-related osteoporosis without current pathological fracture from Last 3 Months Immunizations Name Administration Dates Next Due Influenza Quadravalent, 0.5ml (Fluad) 65yo and o lder 04/03/2021 Influenza trivalent, 0.5mL (Fluad) 65yo and olde r 04/09/2024 Pfizer SARS-CoV-2 COVID-19, mRNA, LNP-S, preservative free 11/17/2020,10/22/2020 Pneumococcal conjugate 13 va lent (Prevnar 13, PCV13) 2mo and older 04/12/2019 Pneumococcal polysaccharide 23 valent (Pneumovax 23) 2yo and older 04/04/2020 Tdap Tetanus diptheria acell ular pertussis (Boostrix; Adacel) 7yo and older 01/27/2017 Zoster recombinant (Shingrix) 19yo and older Surgical History Surgery Date Site/Laterality Comments BREAST SURGERY PROCEDURE:BREAST SURGERY BREAST BIOPSY PROCEDURE:BREAST BIOPSY BILATERAL OOPHORECTOMY PROCEDURE:BILATERAL OOPHORECTOMY HYSTERECTOMY PROCEDURE:HYSTERECTOMY;COMMENT:partial MYOMECTOMY PROCEDURE:MYOMECTOMY SECTION PROCEDURE: SECTION WISDOM TOOTH EXTRACTION PROCEDURE:WISDOM TOOTH EXTRACTION Medical History Medical History Date Comments Anxiety DX:Anxiety Allergic DX:Allergic Allergic rhinitis DX:Allergic rh initis Hypertension DX:Hypertension Disease of thyroid gland DX:Dise ase of thyroid gland Headache DX:Headache Arthritis DX:Arthritis RA (rheumatoid arthritis) ([facility]) DX:RA (rheumatoid arthritis) ([facility]) Chronic constipation DX:Chronic constipation Family History Medical History Relation Name Comments [...] file Not on file Not on file Obstetrics History Last Filed Vital Signs Vital Sign Reading [...] Mass Index 25.58 06/15/2024 10:59 AM EST Plan of Treatment Upcoming Encounters Date Type Department Care Team (Late st Contact Info) Description 10/04/2024 10:30 AM EDT Office Visit Rheumatology - [place] [address] [place] [phone] Nikole Beth MD [address] [place] [address] [place] [phone] Health Maintenance Due Date Last Done Comments Breast Cancer Screening 1950 COVID-19 Vaccine (3 - Pfizer risk series) 12/15/2020 11/17/2020, 10/22/2020 Social Influencers of Health Screening 05/15/2022 Depression Screening 04/07/2023 04/07/2022 Falls Risk Assessment 04/07/2023 04/07/2022 Medicare Annual Wellness Visit 04/07/2023 04/07/2022 Zoster Vaccines (2 of 2) 04/16/2024 02/20/2024 Hypertension/CHF/CAD Annual BMP Blood Test 06/07/2025 06/07/2024, 04/10/2024, 11/14/2023, Additional history exists DTaP,Tdap,and Td Vaccines (2 - Td or Tdap) 01/27/2027 01/27/2017 RSV Immunization Patients 60+ Years Old (1 - 1-dose 75+ series) 2027 Cholesterol Screening (Lipid Panel) 06/07/2029 06/07/2024, 04/10/2024, 04/10/2024, Additional history exists Colorectal Cancer Screening: Colonoscopy 03/22/2032 03/22/2022 Osteoporosis Screening (Bone Density Screening) 03/30/2033 03/30/2023 Pneumococcal Vaccine: 65+ Years Completed 04/04/2020, 04/12/2019 Hepatitis C Screening Completed 11/14/2023 , 11/14/2023, 04/07/2021 Influenza Vaccine Completed 04/09/2024, 04/03/2021 HIB Vaccines Aged Out No longer eligi ble based on patient's age to complete this topic HPV Vaccines Aged Out No longer eligi ble based on patient's age to complete this topic Hepatitis A Vaccines Aged Out No long er eligible based on patient's age to complete this topic Hepatitis B Vaccines Aged Out No long er eligible based on patient's age to complete this topic IPV Vaccines Aged Out No longer eligi ble based on patient's age to complete this topic MMR Vaccines Aged Out No longer eligi ble based on patient's age to complete this topic Meningococcal ACWY Vaccine Aged Out N o longer eligible based on patient's age to complete this topic RSV Immunization Patients Under 20 months Aged Out No longer eligible based on patient's age to complete this topic Varicella Vaccines Aged Out No longer eligible based on patient's age to complete this topic Procedures Procedure Name Priority Date/Time Associated Diagnosis Comments CBC WITH AUTO DIFFERENTIAL Routine 06/07/2024 9:38 AM EST Rheumatoid arthritis involving multiple sites with positive rheumatoid factor (CMS/HCC) LIPID PANEL Routine 06/07/2024 9:38 AM EST Rheumatoid arthritis involving multiple sites with positive rheumatoid factor (CMS/HCC) Hypercholesterolemi a HEPATITIS B VIRUS IMMUNITY PANEL Routine 06/07/2024 9:38 AM EST Rheumatoid arthritis involving multiple sites with positive rheumatoid factor (CMS/HCC) INTERFERON GAMMA FOR TB, WHOLE BLOOD Routine 06/07/2024 9:38 AM EST Rheumatoid arthritis involving multiple sites with positive rheumatoid factor (CMS/HCC) CBC AND DIFFERENTIAL Routine 06/07/2024 9:38 AM EST Rheumatoid arthritis involving multiple sites with positive rheumatoid factor (CMS/HCC) COMPREHENSIVE METABOLIC PANEL Routine 06/07/2024 9:38 AM EST Rheumatoid arthritis involving multiple sites with positive rheumatoid factor (CMS/HCC) SEDIMENTATION RATE Routine 06/07/2024 9: 38 AM EST Rheumatoid arthritis involving multiple sites with positive rheumatoid factor (CMS/HCC) C-REACTIVE PROTEIN Routine 06/07/2024 9: 38 AM EST Rheumatoid arthritis involving multiple sites with positive rheumatoid factor (CMS/HCC) IMMUNOFIXATION ELECTROPHORESIS Routine 04/10/2024 10:26 AM EST C-REACTIVE PROTEIN Routine 04/10/2024 10 :26 AM EST COMPREHENSIVE METABOLIC PANEL Routine 04/10/2024 10:26 AM EST GAMMA GLUTAMYL TRANSFERASE Routine 04/10/2024 10:26 AM EST SEDIMENTATION RATE Routine 04/10/2024 10 :26 AM EST HEPATITIS C SCREENING Routine 11/14/2023 BONE DENSITY STUDY Routine 03/30/2023 10 :10 AM EDT Other specified disorders of bone density and structure, unspecified site DEPRESSION SCREENING Routine 04/07/2022 FALLS RISK ASSESSMENT Routine 04/07/2022 COLONOSCOPY Routine 03/22/2022 from Last 3 Months or Most Recently Relevant to Health Maintenance Results * Hepatitis b virus immunity panel (06/07/2024 9:38 AM EST) Hepatitis B Core Ab Total NON-REACT MARILEE NON-REACT MARILEE [facility] Comment: For additional information, please refer to http://education.uParts/faq/XSF840 (This link is being provided for informational/ educational purposes only.) Hepatitis B Surface Antibody Qual NON-REACT MARILEE NON-REACT MARILEE [facility] Blood Venous blood specimen / Unknown 06/07/2024 9:38 AM EST 06/07/2024 9:38 AM EST Narrative [facility] ([place] - 06/09/2024 1:22 PM EST CC: Mishel ELLSWORTH Nikole Beth MD LAB BLOOD ORDERABLES [facility] ([facility]) [facility] [address] [place] [phone] * Interferon gamma for TB, whole blood (06/07/2024 9:38 AM EST) [facility] TB Quantiferon Plus NEGATIVE NEGATIVE [facility] Comment: Negative test result. M. tuberculosis complex infection unlikely. Nil 0.04 IU/mL [facility] Mitogen-Nil >10.00 IU/mL [facility] TB1 Antigen-Nil 0.13 IU/mL [facility] TB2 Antigen-Nil 0.15 IU/mL [facility] Comment: The Nil tube value reflects the background interferon gamma immune response of the patient's blood sample. This value has been subtracted from the patient's displayed TB and Mitogen results. Lower than expected results with the Mitogen tube prevent false-negative Quantiferon readings by detecting a patient with a potential immune suppressive condition and/or suboptimal pre-analytical specimen handling. The TB1 Antigen tube is coated with the M. tuberculosis-specific antigens designed to elicit responses from TB antigen primed CD4+ helper T-lymphocytes. The TB2 Antigen tube is coated with the M. tuberculosis-specific antigens designed to elicit responses from TB antigen primed CD4+ helper and CD8+ cytotoxic T-lymphocytes. For additional information, please refer to https://[employer].uParts/faq/PDA543 (This link is being provided for informational/ educational purposes only.) Blood Venous blood specimen / Unknown 06/07/2024 9:38 AM EST 06/07/2024 9:38 AM EST Narrative [facility] ([place]) - 06/09/2024 1:22 PM EST CC: Mishel ELLSWORTH Nikole Beth MD LAB BLOOD ORDERABLES [facility] ([place]) [facility] [address] [place] [address] * (ABNORMAL) CBC auto differential (06/07/2024 9:38 AM EST) White Blood Cell Count 9.6 3.8 - 10.8 Thousand/ uL [facility] RBC Count 4.07 3.80 - 5.10 Million/u L [facility] Hemoglobin 12.0 11.7 - 15.5 g/dL [facility] Hematocrit 36.9 35.0 - 45.0 % [facility] [employer] MCV 90.7 80.0 - 100.0 fL [facility] MCH 29.5 27.0 - 33.0 pg [facility] MCHC 32.5 32.0 - 36.0 g/dL [facility] Comment: For adults, a slight decrease in the calculated MCHC value (in the range of 30 to 32 g/dL) is most likely not clinically significant; however, it should be interpreted with caution in correlation with other red cell parameters and the patient's clinical condition. RDW 12.1 11.0 - 15.0 % [facility] [employer] Platelet Count 389 140 - 400 Thousand/ uL [facility] MPV 11.5 7.5 - 12.5 fL [facility] Absolute Neutrophil 4,051 1,500 - 7,800 cells/uL [facility] Absolute Lymphocytes 4,387(H) 850 - 3,900 cells/uL [facility] Absolute Monocytes 806 200 - 950 cells/uL [facility] Absolute Eosinophils 278 15 - 500 cells/uL [facility] [employer] Absolute Basophils 77 0 - 200 cells/uL [facility] Neutrophils 42.2 % [facility] Lymphocytes 45.7 % [facility] Monocytes 8.4 % [facility] Eosinophils 2.9 % [facility] Basophils 0.8 % [facility] Blood Venous blood specimen / Unknown 06/07/2024 9:38 AM EST 06/07/2024 9:38 AM EST Narrative [facility] ([place]) - 06/09/2024 1:22 PM EST CC: Mishel ELLSWORTH iNkole Beth MD LAB BLOOD ORDERABLES Performing Organization Address City/[facility]/ZIP Co de Phone Number [facility]) [facility] [place] [address] [place] [phone] * (ABNORMAL) Sedimentation rate (06/07/2024 9:38 AM EST) Only the most recent of2 resultswithin the time period is included. Sedimentation Rate Modified Westergren 51(H) < OR = 30 mm/h [facility] [place] Blood Venous blood specimen / Unknown 06/07/2024 9:38 AM EST 06/07/2024 9:38 AM EST [facility] ([place]) - 06/09/2024 1:22 PM EST CC: Mishel ELLSWORTH Nikole Beth MD LAB BLOOD ORDERABLES Performing Organization Address City/[facility]/ZIP Co de Phone Number [facility] ([place]) [facility] [place] [address] [place] [phone] * C-reactive protein (06/07/2024 9:38 AM EST) Only the most recent of2 resultswithin the time period is included. C-Reactive Protein 4.6 <8.0 mg/L [facility] [place] Blood Venous blood specimen / Unknown 06/07/2024 9:38 AM EST 06/07/2024 9:38 AM EST Narrative [facility] Anton [facility] ([place]) - 06/09/2024 1:22 PM EST CC: Mishel ELLSWORTH Nikole Beth MD LAB BLOOD ORDERABLES Performing Organization Address [facility]/ZIP Co de Phone Number [facility] ([place]) [facility] [address] [place] [phone] * (ABNORMAL) Lipid panel (06/07/2024 9:38 AM EST) Cholesterol Total 145 <200 mg/dL [facility] HDL Cholesterol 42(L) > OR = 50 mg/dL [facility] Triglycerides 174(H) <150 mg/dL [facility] LDL Cholesterol 76 mg/dL (calc) [facility] Comment: Reference range: <100 Desirable range <100 mg/dL for primary prevention; ?? <70 mg/dL for patients with CHD or diabetic patients with > or = 2 CHD risk factors. LDL-C is now calculated using the Dontrell-Meyers calculation, which is a validated novel method providing better accuracy than the Friedewald equation in the estimation of LDL-C. Dontrell SS et al. ALIX. 2013;310(19): 5230-9207 (http://education.Head Held High/faq/KDM109) Chol/HDLC Ratio 3.5 <5.0 (calc) [facility] Non HDL Cholesterol 103 <130 mg/dL (calc) [facility] Comment: For patients with diabetes plus 1 major ASCVD risk factor, treating to a non-HDL-C goal of <100 mg/dL (LDL-C of <70 mg/dL) is considered a therapeutic option. Blood Venous blood specimen / Unknown 06/07/2024 9:38 AM EST 06/07/2024 9:38 AM EST [facility] ([place]) - 06/09/2024 1:22 PM EST CC: Mishel ELLSWORTH Nikole Beth MD LAB BLOOD ORDERABLES Performing Organization Address [facility]/ZIP Co de Phone Number [facility] ([place]) [facility] [address] [place] [phone] * Comprehensive metabolic panel (06/07/2024 9:38 AM EST) Only the most recent of2 resultswithin the time period is included. [facility] Glucose 90 65 - 99 mg/dL [facility] Comment: ? Fasting reference interval Urea Nitrogen (BUN) 14 7 - 25 mg/dL [facility] Creatinine 0.88 0.60 - 1.00 mg/dL [facility] eGFR 70 > OR = 60 mL/min/1 .73m2 [facility] BUN/Creatinine Ratio SEE NOTE: (calc) [facility] Comment: ?? Not Reported: BUN and Creatinine are within ?? reference range. ? Sodium 140 135 - 146 mmol/L [facility] Potassium 4.3 3.5 - 5.3 mmol/L [facility] Chloride 106 98 - 110 mmol/L [facility] Carbon Dioxide 27 20 - 32 mmol/L [facility] Calcium 9.5 8.6 - 10.4 mg/dL [facility] Total Protein 7.1 6.1 - 8.1 g/dL [facility] Albumin 3.7 3.6 - 5.1 g/dL [facility] Globulin 3.4 1.9 - 3.7 g/dL (calc) [facility] Albumin/Globulin Ratio 1.1 1.0 - 2.5 (calc) [facility] Bilirubin Total 0.4 0.2 - 1.2 mg/dL [facility] Alkaline Phosphatase 138 37 - 153 U/L [facility] Aspartate aminotransferase??(A ST) 25 10 - 35 U/L [facility] Alanine Aminotransferase (ALT) 18 6 - 29 U/L [facility] Blood Venous blood specimen / Unknown 06/07/2024 9:38 AM EST 06/07/2024 9:38 AM EST Narrative [facility] ([place]) - 06/09/2024 1:22 PM EST CC: Mishel ELLSWORTH Nikole Beth MD LAB BLOOD ORDERABLES Performing Organization Address City/[facility]/ZIP Co de Phone Number [facility] ([place]) [facility] [address] [place] [phone] * Immunofixation electrophoresis serum (04/10/2024 10:26 AM EST) [facility] KEITH Interpretation Q uest [employer] Comment:No monoclonal protei ns detected. 04/10/2024 10:2 6 AM EST 04/10/2024 10:27 AM EST Narrative [facility] ([place]) - 04/11/2024 10:05 PM EST FASTING:YES FASTING: YES Nikole Beth MD LAB BLOOD ORDERABLES Performing Organization Address City/[facility]/ZIP Co de Phone Number [facility] ([place]) [facility] [address] [place] [phone] * GGT (04/10/2024 10:26 AM EST) [facility] Gamma Glutamyl Transferase (GGT) 56 3 - 65 U/L [facility] 04/10/2024 10:2 6 AM EST 04/10/2024 10:27 AM EST Narrative [facility] ([place]) - 04/11/2024 10:05 PM EST FASTING:YES FASTING: YES Nikole Beth MD LAB BLOOD ORDERABLES Performing Organization Address City/[facility]/ZIP Co de Phone Number [facility] ([place]) [place] [address] [place] [phone] * Hepatitis C Screening (11/14/2023) [facility] Hepatitis C Screening Abstracted Historical Provider [facility] PRAKASH E * BONE DENSITY STUDY (03/30/2023 10:10 AM EDT) Anatomical Region Laterality Modality Bone Densitometr y 03/15/2023 1:25 PM EDT Narrative 03/30/2023 11:46 AM EDT Bone density study Indication and risk factors: Postmenopausal female. ??Screening for osteoporosis. ??No priors available. Study acquired on a [employer] ([employer] densitometer. Imaging of the lumbar spine and hip was completed. FINDINGS: LUMBAR SPINE Averaged L1 through L4: Bone density: 0.86 g/cm2 Z score: -1.0 T score: -2.7 LEFT HIP Left total hip: Bone density: -7.6 g/cm2 Z score: -0.5 T score: -2.0 CONCLUSION: 1. ??Lumbar spine: ??Osteoporosis. 2. ??Left hip: ??Osteopenia. SESSION: Not applicable World Health Organization Definitions of Osteoporosis: T score at or below -1.0: Normal BMD T score between -1.0 and -2.5: Osteopenia T score at or below -2.5: Osteoporosis DEXA guidelines: Diagnosis : Treatment : Follow-up DEXA Normal BMD : Prevention : 2-3 years Osteopenia : Prevention/therapy :1-2 years Osteoporosis : Therapy : Yearly Report reviewed and signed by : Dr. Zuri Jon on 03/30/2023 11:46 AM. Workstation Name - DONTRELL- Procedure Note Zuri Jon MD - 07/12/2023 Bone density study Indication and risk factors: Postmenopausal female. Screening forosteoporosis. No priors available. Study acquired on a [employer] ([employer] densitometer. Imaging of thelumbar spine and hip was completed. FINDINGS: LUMBAR SPINE Averaged L1 through L4: Bone density: 0.86 g/cm2 Z score: -1.0 T score: -2.7 LEFT HIP Left total hip: Bone density: -7.6 g/cm2 Z score: -0.5 T score: -2.0 CONCLUSION: 1. Lumbar spine: Osteoporosis. 2. Left hip: Osteopenia. SESSION: Not applicable World Health Organization Definitions of Osteoporosis: T score at or below -1.0: Normal BMD T score between -1.0 and -2.5: Osteopenia T score at or below -2.5: Osteoporosis DEXA guidelines: Diagnosis : Treatment : Follow-up DEXA Normal BMD : Prevention : 2-3 years Osteopenia : Prevention/therapy :1-2 years Osteoporosis : Therapy : Yearly Report reviewed and signed by : Dr. Zuri Jon on 03/30/2023 11:46 AM.Workstation Name - DONTRELL- Neftali Ellsworth MD IMG DXA PROCEDURES * Falls Risk Assessment (04/07/2022) [facility] Falls Risk Assessment abstracted Historical Provider [facility] MAINTENANC E * Depression Screening (04/07/2022) Pathologist [facility] Depression Screening abstracted [facility] * Colonoscopy (03/22/2022) Pathologist [facility] Colonoscopy no interpretation , abstracted Anatomical Region Laterality Modality Other Historical Provider [facility] from Last 3 Months or Most Recently Relevant to Health Maintenance Care Teams Core Blower Operator Relationship Specialty Start Date End Date Neftali Ellsworth MD [address] [place] [address] PCP - General Family Medicine 12/03/20
== END 2024-07-03 10:57 | disposition home or self-care (01) ==
LOC: HO.MAMMO 10:56
PROVIDERS: PCP Family Medicine; Visit Provider Family Medicine
DX: Z12.31 Encounter for screening mammogram for malignant neoplasm of breast (principal)
CPT/HCPCS: 77063; 77067

== ENCOUNTER → 2024-07-03 11:15 | Outpatient (BNV) | payer OTHER, SELFPAY | PROVIDERS: PCP Family Medicine; Visit Provider Internal Medicine | DX: Z12.31 Encounter for screening mammogram for malignant neoplasm of breast (principal) | CPT/HCPCS: 77063; 77067 ==